=== PATIENT | male | born 1985 | race Hispanic/Latino ===

== ENCOUNTER 2017-06-06 18:01 | Inpatient (IN) | payer BC ==
[2017-06-06 18:01] VITALS: BMI 29.5
[2017-06-06] MEDS ORDERED: Sodium Chloride 0.9% 1,000 ML IV ONE ×2 (19:47→22:15)
--- NOTE | 2017-06-06 19:47 | C.PDOC ---
History Of Present Illness 31 year old male comes in to the ER complaining of abdominal pain. No fever, chills, nausea, or vomiting. Patient reports drinking around 1 quart of vodka daily. No homicidal or suicidal ideation. Does not want detox at this time. PMD: non-[facility] provider Time Seen by Provider: 06/06/17 19:46 Chief Complaint (Nursing): GI Problem History Per: Patient History/Exam Limitations: no limitations Onset/Duration Of Symptoms: Hrs Current Symptoms Are (Timing): Still Present Severity: Moderate Pain Scale Rating Of: 4 Location Of Pain/Discomfort: Diffuse Radiation Of Pain To:: None Quality Of Discomfort: "Pain" Associated Symptoms: denies: Fever, Chills, Nausea, Vomiting Exacerbating Factors: None Alleviating Factors: None Recent travel outside of the [place]: No Past Medical History Reviewed: Historical Data, Nursing Documentation, Vital Signs Vital Signs: Last Vital Signs Temp 98.6 F 06/07/17 05:51 Pulse 93 H 06/07/17 05:51 Resp 18 06/07/17 05:51 BP 136/90 06/07/17 05:51 Pulse Ox 95 06/07/17 05:51 - Medical History PMH: Post Traumatic Stress Disorder Surgical History: No Surg Hx - [facility] Procedures DETOXIFICATION SERVICES FOR SUBSTANCE ABUSE TREATMENT (04/11/16) GROUP SWITCH CREW SUPERVISOR FOR SUBSTANCE ABUSE TREATMENT, PSYCHOEDUCATION (04/11/16) Family History: States: No Known Family Hx - Social History Hx Tobacco Use: No Hx Alcohol Use: Yes (daily) Hx Substance Use: No - Immunization History Hx Tetanus Toxoid Vaccination: No Hx Influenza Vaccination: No Hx Pneumococcal Vaccination: No Review Of Systems Constitutional: Negative for: Fever, Chills Gastrointestinal: Positive for: Abdominal Pain. Negative for: Nausea, Vomiting Psych: Negative for: Suicidal ideation (or homicidal) Physical Exam - Physical Exam Appears: Non-toxic, No Acute Distress Skin: Warm, Dry Head: Normacephalic Eye(s): bilateral: Normal Inspection Oral Mucosa: Moist Neck: Trachea Midline, Supple Chest: Symmetrical Cardiovascular: Rhythm Regular Respiratory: No Rales, No Rhonchi, No Wheezing Gastrointestinal/Abdominal: Soft, Tenderness (Mild mid-epigastric tenderness), No Guarding, No Rebound Back: Normal Inspection Extremity: Normal ROM Extremity: Bilateral: Atraumatic Pulses: Left Dorsalis Pedis: Normal, Right Dorsalis Pedis: Normal Neurological/Psych: Oriented x3, Other (Cooperative, pleasant) Gait: Steady ED Course And Treatment - Laboratory Results Result Diagrams: 06/06/17 20:19 06/06/17 20:19 O2 Sat by Pulse Oximetry: 95 (RA) Pulse Ox Interpretation: Normal Progress Note: Ordered blood work, UDS, and UA. Patient given 0.5 mg Ativan, 20 mg Pepcid, and started on IV fluids. Disposition Counseled Patient/Family Regarding: Studies Performed, Diagnosis, Need For Followup - Disposition Disposition Time: 19:47 Condition: FAIR Forms: [email or web address] (Lebanese) - Clinical Impression Clinical Impression: Alcohol abuse, Abdominal pain, Depression - Scribe Statement The provider has reviewed the documentation as recorded by the Scribe (Meghan Angulo) Provider Attestation: All medical record entries made by the Scribe were at my direction and personally dictated by me. I have reviewed the chart and agree that the record accurately reflects my personal performance of the history, physical exam, medical decision making, and the department course for this patient. I have also personally directed, reviewed, and agree with the discharge instructions and disposition. Physician Patient Turnover Patient Signed Over To: Rush Quiñonez Handoff Comments: pending transfer to [facility] unit
[2017-06-06 20:26] LABS: SQUAMOUS EPITHIAL < 1 /hpf (0-5); URINE BACTERIA OCC (<OCC); URINE BILIRUBIN 1+ (NEGATIVE); URINE BLOOD NEGATIVE (NEGATIVE); URINE CLARITY Hazy (Clear); URINE COLOR Amber (YELLOW); URINE GLUCOSE (UA) 1+ mg/dL (Normal); URINE LEUKOCYTE ESTERASE NEG Leu/uL (Negative); URINE NITRATE NEGATIVE (NEGATIVE); URINE PROTEIN 3+ mg/dL (NEGATIVE)
[2017-06-06] MEDS ORDERED: Sodium Chloride 0.9% 1,000 ML ONE (20:31)
[2017-06-06 20:38] LABS: ALB/GLOB RATIO 1.1 (1.0-2.1); ALBUMIN 4.7 g/dL (3.5-5.0); ALT/SGPT 187 U/L (21-72); AST/SGOT 268 U/L (17-59); BLOOD UREA NITROGEN 8 mg/dL (9-20); CALCIUM 9.3 mg/dl (8.6-10.4); GFR AFRICAN-AMERICAN > 60; GFR NON-AFRICAN AMERICAN > 60; LIPASE 377 U/L (23-300)
[2017-06-06 20:47] LABS: BARBITURATES, UR NEGATIVE (NEGATIVE); OPIATES, UR NEGATIVE (NEGATIVE); PHENCYCLIDINE, UR NEGATIVE (NEGATIVE)
[2017-06-06 20:49] LABS: BENZODIAZEPINES, UR POSITIVE (NEGATIVE)
[2017-06-06 20:59] LABS: BASO % 0.3 % (0.0-2.0); EOS % 0.1 % (0.0-4.0); LYMPH % 11.1 % (20.0-40.0)
[2017-06-06 21:16] LABS: HEMOGLOBIN 17.4 g/dL (12.0-18.0); LYMPH # 0.9 K/uL (1.0-4.3); MEAN CELL VOLUME 98.4 fL (80.0-94.0); MEAN CORPUSCULAR HEMOGLOBIN 34.6 pg (27.0-31.0); MEAN CORPUSCULAR HGB CONC 35.2 g/dL (33.0-37.0); MEAN PLATELET VOLUME 8.6 fL (7.2-11.7); MONO # 0.7 K/uL (0.0-0.8); MONO % 9.1 % (0.0-10.0); NEUT # 6.4 K/uL (1.8-7.0); NEUT % 79.4 % (50.0-75.0); NRBC % 0.1 % (0.0-2.0); RBC 5.04 Mil/uL (4.40-5.90); RED CELL DISTRIBUTION WIDTH 13.9 % (11.5-14.5); WHITE BLOOD COUNT 8.1 K/uL (4.8-10.8)
[2017-06-06] MEDS ORDERED: Iodixanol 320 MG/ML 100 ML BOTTLE IV ONE (21:38)
--- NOTE | 2017-06-06 22:27 | CT ---
EXAM: CT Abdomen and Pelvis With Intravenous Contrast EXAM DATE/TIME: 06/06/2017 8:41 PM CLINICAL HISTORY: 31 years old, male; Pain; Abdominal pain; Generalized; Additional info: Abd pain, elevated, lipase, ETOH abuse TECHNIQUE: Axial computed tomography images of the abdomen and pelvis with intravenous contrast. All CT scans at this facility use one or more dose reduction techniques, viz.: automated exposure control; ma/kV adjustment per patient size (including targeted exams where dose is matched to indication; i.e. head); or iterative reconstruction technique. Coronal and sagittal reformatted images were created and reviewed. CONTRAST: 100 mL of visipaque 320 administered intravenously. COMPARISON: No relevant prior studies available. FINDINGS: The liver is decreased in attenuation consistent with fatty infiltration. Splenic calcifications are present. The pancreas is normal. No evidence of pancreatitis. No gallstones. There is minimal bilateral symmetric perinephric stranding. Indistinctness of the anterior urinary bladder wall due to patient motion. The small bowel appears normal. The right colon is decompressed. A normal appendix is identified coronal images 53 through 55. No aortic aneurysm or dissection. IMPRESSION: No acute findings. Fatty liver.
[2017-06-07] MEDS: Multiple Vitamins Tab PO SCH (10:45)
--- NOTE | 2017-06-07 11:07 | PCM.BM ---
<Stacie Woods - Last Filed: 06/07/17 11:05> Treatment Plan Problems - Problems identified on initial assessmt Potential for alcohol withdrawals Date Initiated: 06/07/17 Assessment reference: NA Status: Active Treatment assets and liabiliti Patient Assests: adapts well, cooperative, educated, motivated, ADL independent , negotiates basic needs Patient Liabilities: substance abuse - Milieu Protocol Maintain good personal hygiene: daily Encourage regular showers, daily Remind patient to perform daily oral care, daily Assist patient to perform ADL's Maintain personal safety: every shift Educate patient to report safety concerns to staff, every shift Monitor environment for contraband/sharps Medication safety: Monitor for expected outcome, potential side effects: every shift, Assess barriers to learning: every shift, Assess readiness for medication education: every shift <Placido Lloyd - Last Filed: 06/07/17 14:13> - Diagnosis (1) Alcohol use disorder Status: Acute Interventions: 06/07/17 14:13 * Assess 7x/week regarding severity of withdrawal * Educate regarding risks, benefits, side effects and alternatives of medications * Use Motivational Interviewing for abstinence * Use CBT for relapse prevention * Medication management for withdrawal symptoms * Encourage medication assisted treatment *
[2017-06-07 12:12] LABS: MAGNESIUM 1.3 mg/dL (1.6-2.3)
[2017-06-07] MEDS: Pantoprazole 20 mg EC Tab PO SCH (13:26)
[2017-06-07] MEDS: Potassium Chloride 20 mEq ER Tab PO SCH (13:26)
--- NOTE | 2017-06-07 14:24 | PCM.PSYCH ---
Initial Psychiatric Evaluation - Initial Psychiatric Evaluation Type of Admission: Voluntary Legal Status: Capacity Chief Complaint (in patient's own words): "Alcohol" History of Present Illness and Precipitating Events: The patient is seen, chart reviewed and case discussed. This is a 31-year-old male, with no children, lives with 2 roommates, works for [employer]. He admits to drinking a pint of whiskey and he used to drink more than that, "a handle" (1.7 L) He says he increased last February but he has a history of several years already. First time was in his teens. He currently has significant wdw sxs with his BP shot up to 120 diastolic! He is shaky, sweaty and despite meds given in ED. No hx of DTs or seizures but he says he could not stop outside. He denies drugs and cigarettes smoking. This is his first detox but he was here for a psychiatric admission from where he went to medical floor. He reports anxiety, flashbacks and nightmares from an incident during [place] war in [id number]. He says he used zoloft with not much success. Past psych hx: One brief admission here. no beba attempt. Family psych history: Denies Medical history: Denies Current Medications: Active Medications Generic Name Dose Route Start Last Admin Trade Name Freq PRN Reason Stop Dose Admin Clonidine HCl 0.1 mg 06/07/17 12:16 Catapres PO Q4H PRN BP>150/100 or P>100 Folic Acid 1 mg 06/07/17 10:15 06/07/17 10:45 Folic Acid PO Not Given DAILY GARRET Gabapentin 400 mg 06/07/17 14:00 06/07/17 13:25 Neurontin PO 400 mg TID GARRET Administration Hydroxyzine HCl 50 mg 06/07/17 10:17 Atarax PO Q6H PRN Anxiety Ibuprofen 600 mg 06/07/17 10:17 06/07/17 10:54 Motrin Tab PO 600 mg Q6H PRN Administration Pain, moderate (4-7) Lorazepam 2 mg 06/07/17 10:30 06/07/17 10:33 Ativan PO 06/12/17 10:29 2 mg Q6H GARRET Administration Taper Lorazepam 1 mg 06/07/17 10:16 Ativan PO Q4H PRN Symptoms of alcohol withdrawl Magnesium Oxide 400 mg 06/07/17 18:00 Mag-Ox PO BID GARRET Multivitamins 1 tab 06/07/17 10:15 06/07/17 10:45 Hexavitamin PO Not Given DAILY GARRET Pantoprazole Sodium 20 mg 06/07/17 12:15 06/07/17 13:26 Protonix Ec Tab PO 20 mg DAILY GARRET Administration Potassium Chloride 20 meq 06/07/17 12:30 06/07/17 13:26 K-Dur 20 Meq Er Tab PO 06/08/17 10:01 20 meq DAILY GARRET Administration Thiamine HCl 100 mg 06/07/17 10:15 06/07/17 10:45 Vitamin B1 Tab PO Not Given DAILY GARRET Trazodone HCl 100 mg 06/07/17 10:13 Desyrel PO HS PRN Insomnia Past Psychiatric History - Past Psychiatric History Previous Treatment History: Inpatient Pertinent Medical Hx (Current Medical&Sleep Prob, Allergies): Allergies Allergy/AdvReac Type Severity Reaction Status Date / Time No Known Allergies Allergy Verified 06/06/17 18:41 Sertraline HCl 1 tab PO DAILY 06/06/17 Trazodone HCl 50 mg PO HS PRN 06/06/17 Review of Systems - Psychiatric Psychiatric: Abnormal Sleep Pattern, Anxiety. absent: Hallucinations, Homicidal Ideation, Paranoia, Suicidal Ideation Mental Status Examination - Personal Presentation Personal Presentation: Looks stated age - Affect Affect: Constricted - Motor Activity Motor Activity: Calm - Reliability in Providing Information Reliability in Providing Information: Good - Speech Speech: Organized - Mood Mood: Anxious - Formal Thought Process Formal Thought Process: No Impairment - Cognitive Functions Orientation: Person, Place, Situation, Time Sensorium: Alert Attention/Concentration: Attentive Estimate of Intelligence: Average Judgement: Intact, as evidence by: Insight regarding need for hospitalization Memory: Recent intact, as evidence by: Ability to recall events of the day, Remote intact, as evidenced by: Ability to recall historical events - Risk Risk: Seizure, Withdrawal, Diminished functioning - Strength & Assets Inventory Strength & Assets Inventory: Cooperative - Limitations Limitations: Living alone, Other DSM 5 DX - DSM 5 DSM 5 Diagnosis: Alcohol withdrawal Alcohol use d/o- severe PTSD - Recommended/Plan of Treatment Treatment Recommendations and Plan of Treatment: Start taper with Ativan due to elevated LFTs Gabapentin for augmentation As needed medications Mg supplement Protonix bc of pancrease/GI irritability All risks, benefits and alternatives of the meds discussed, and the pt agreed and understood. Attend groups and activities Supportive therapy and psychoeducation [place] for abstinence CBT for relapse prevention Encourage MAT Refer to rehab or IOP, and self-help groups 34 min Projected ELOS: 5-6 days Prognosis: Fair to good Discharge Plan and Discharge Criteria: Refer to IOP as he says he cannot go to rehab due to work
[2017-06-07] MEDS: Magnesium Oxide 400 mg Tab UD PO SCH (17:45)
[2017-06-08] MEDS: Pantoprazole 20 mg EC Tab PO SCH (10:23)
[2017-06-08] MEDS: Multiple Vitamins Tab PO SCH (10:23)
[2017-06-08] MEDS: Potassium Chloride 20 mEq ER Tab PO SCH (10:24)
[2017-06-08] MEDS: Magnesium Oxide 400 mg Tab UD PO SCH ×2 (10:44→20:47)
--- NOTE | 2017-06-08 13:48 | PCM.PYCHPN ---
Psychiatric Progress Note - Psychiatric Progress Note Patient seen today, length of contact: 16 min Patient Chief Complaint: "Better, a little" Problems Identified/Issues Discussed: The pt is seen, chart reviewed, case discussed with staff. The pt is compliant with medications and reports no side-effects. Symptoms are improving but needs more time to stabilize. After care discussed, support and psychoeducation given. Medication Change: Yes Medical Record Reviewed: Yes Mental Status Examination - Cognitive Function Orientation: Person, Place, Situation, Time Memory: Intact Attention: WNL Concentration: Poor Association: WNL Fund of Knowledge: WNL - Mood Mood: Anxious - Affect Affect: Constricted - Formal Thought Process Formal Thought Process: No Impairment - Suicidal Ideation Suicidal Ideation: No - Homicidal Ideation Homicidal Ideation: No Goal/Treatment Plan - Goal/Treatment Plan Need for Continued Stay: Discharge may exacerbated symptoms, Severe functional impairment Progress Toward Problem(s) and Goals/Treatment Plan: Ativan taper due to elevated LFTs Gabapentin for augmentation As needed medications Mg supplement Protonix bc of pancrease/GI irritability All risks, benefits and alternatives of the meds discussed, and the pt agreed and understood. Attend groups and activities Supportive therapy and psychoeducation [place] for abstinence CBT for relapse prevention Encourage MAT Refer to rehab or IOP, and self-help groups
[2017-06-09] MEDS: Magnesium Oxide 400 mg Tab UD PO SCH ×2 (09:14→17:35)
[2017-06-09] MEDS: Pantoprazole 20 mg EC Tab PO SCH (09:14)
[2017-06-09] MEDS: Multiple Vitamins Tab PO SCH (09:14)
--- NOTE | 2017-06-09 16:28 | PCM.PYCHPN ---
Psychiatric Progress Note - Psychiatric Progress Note Patient seen today, length of contact: 15 minutes Patient Chief Complaint: I'm feeling better, my sleep is also better. Problems Identified/Issues Discussed: Patient seen, chart reviewed, case discussed with the staff. Issues related to illness and treatment were discussed with the patient and staff. Reported compliant with treatment with no adverse affects. Tolerating treatment very well. Reported very mild withdrawal symptoms, needs more time for stabilization. At the time of evaluation, patient was awake alert oriented 3, had no delusions , no auditory or visual hallucinations, no suicidal ideations or homicidal ideations. Aftercare discussed with the patient. Medical Problems: None reported Diagnostic Results: Reviewed DSM 5 Symptoms Update: Improving with treatment Medication Change: No Medical Record Reviewed: Yes Mental Status Examination - Cognitive Function Orientation: Person, Place, Situation, Time Memory: Intact Attention: WNL Concentration: WNL Association: WN Fund of Knowledge: [facility] Decription of patient's judgement and insights: Fair - Mood Mood: Anxious (Much less than before) - Affect Affect: Other (Appropriate) - Speech Speech: Appropriate - Formal Thought Process Formal Thought Process: No Impairment Psychotic Thoughts and Behaviors: None - Suicidal Ideation Suicidal Ideation: No - Homicidal Ideation Homicidal Ideation: No Goal/Treatment Plan - Goal/Treatment Plan Need for Continued Stay: Remain at risks for inpatient hospitalization, Discharge may exacerbated symptoms, Severe functional impairment Progress Toward Problem(s) and Goals/Treatment Plan: Improving with treatment Patient education Supportive therapy Continue treatment as before Patient did not decide aftercare yet, will decide with help of social work faculty member. Estimated Date of D/C: 06/12/17 - Smoking Cessation Smoking Cessation Initiated: No
[2017-06-10] MEDS: Pantoprazole 20 mg EC Tab PO SCH (09:40)
[2017-06-10] MEDS: Multiple Vitamins Tab PO SCH (09:40)
[2017-06-10] MEDS: Magnesium Oxide 400 mg Tab UD PO SCH ×2 (09:41→17:45)
--- NOTE | 2017-06-10 16:12 | PCM.PYCHPN ---
Psychiatric Progress Note - Psychiatric Progress Note Patient seen today, length of contact: 15 minutes Patient Chief Complaint: I'm feeling better, my sleep is also better. Problems Identified/Issues Discussed: Patient seen, chart reviewed, case discussed with the staff. Issues related to illness and treatment were discussed with the patient and staff. Reported compliant with treatment with no adverse affects. Tolerating treatment very well. Reported feeling better. At the time of evaluation, patient was awake alert oriented 3, had no delusions , no auditory or visual hallucinations, no suicidal ideations or homicidal ideations. Aftercare discussed with the patient. Medical Problems: None reported Diagnostic Results: Reviewed DSM 5 Symptoms Update: Improving with treatment Medication Change: No Medical Record Reviewed: Yes Mental Status Examination - Cognitive Function Orientation: Person, Place, Situation, Time Memory: Intact Attention: WNL Concentration: WNL Association: [facility] Fund of Knowledge: [facility] Decription of patient's judgement and insights: Fair - Mood Mood: Neutral - Affect Affect: Other (Appropriate) - Speech Speech: Appropriate - Formal Thought Process Formal Thought Process: No Impairment Psychotic Thoughts and Behaviors: None - Suicidal Ideation Suicidal Ideation: No - Homicidal Ideation Homicidal Ideation: No Goal/Treatment Plan - Goal/Treatment Plan Need for Continued Stay: Remain at risks for inpatient hospitalization, Discharge may exacerbated symptoms, Severe functional impairment Progress Toward Problem(s) and Goals/Treatment Plan: Improving with treatment Patient education Supportive therapy Continue treatment as before Patient did not decide aftercare yet, will decide with help of social media community manager. Estimated Date of D/C: 06/12/17 - Smoking Cessation Smoking Cessation Initiated: No
[2017-06-11 06:21] VITALS: O2SAT 99
[2017-06-11] MEDS: Magnesium Oxide 400 mg Tab UD PO SCH (09:25)
[2017-06-11] MEDS: Pantoprazole 20 mg EC Tab PO SCH (09:25)
[2017-06-11] MEDS: Multiple Vitamins Tab PO SCH (09:25)
--- NOTE | 2017-06-11 09:59 | PCM.PYCHDC ---
Mental Status Examination - Mental Status Examination Orientation: Person Discharge Summary - Discharge Note Consultations:: List each consultation separately and include: 1. Reason for request. 2. Findings. 3. Follow-up Summary of Hospital Course include:: 1. Description of specific treatment plan utilized for patients during their course of treatmen. 2. Summarize the time- course for resolution of acute symptoms and/or regressed behaviors. 3. Describe issues identified and worked on during hospitalization. 4. Describe medication utilized. 5. Describe medical problems identified and treated. 6. Reassessment of suicide risk Summary of Hospital Course: The patient is seen, chart reviewed and case discussed. This is a 31-year-old male, with no children, lives with 2 roommates, works for [employer]. He admits to drinking a pint of whiskey and he used to drink more than that, "a handle" (1.7 L) He says he increased last February but he has a history of several years already. First time was in his teens. He currently has significant wdw sxs with his BP shot up to 120 diastolic! He is shaky, sweaty and despite meds given in ED. No hx of DTs or seizures but he says he could not stop outside. He denies drugs and cigarettes smoking. This is his first detox but he was here for a psychiatric admission from where he went to medical floor. He reports anxiety, flashbacks and nightmares from an incident during [place] war in [id number]. He says he used zoloft with not much success. Past psych hx: One brief admission here. no beba attempt. Family psych history: Denies Medical history: Denies - Diagnosis (1) Alcohol use disorder Current Visit: Yes Status: Acute - Final Diagnosis (DSM 5) Condition upon Discharge: FAIR Disposition: HOME/ ROUTINE Follow-up Treatment Plan: Ativan taper due to elevated LFTs Gabapentin for augmentation As needed medications Mg supplement Protonix bc of pancrease/GI irritability All risks, benefits and alternatives of the meds discussed, and the pt agreed and understood. Attend groups and activities Supportive therapy and psychoeducation [place] for abstinence CBT for relapse prevention Encourage MAT Refer to rehab or IOP, and self-help groups Prescriptions/Medication Reconciliation: Gabapentin [Neurontin] 400 mg PO TID #90 cap Magnesium Oxide [Mag-Ox] 400 mg PO DAILY #14 tab Multivitamins [Hexavitamin] 1 tab PO DAILY #30 tab Pantoprazole [Protonix EC Tab] 20 mg PO DAILY #30 ect traZODone [Desyrel] 100 mg PO HS PRN #30 tab PRN Reason: Insomnia
[2017-06-11 10:52] VITALS: RESP 18
[2017-06-11 10:59] VITALS: BP 132/86; PULSE 87; TEMP 97.8
== END 2017-06-11 11:00 | disposition home or self-care (01) | DRG 895 ==
LOC: C.ER 18:01 → C.7D 06-07 08:34
PROVIDERS: ADMIT Psychiatry & Neurology Psychiatry; ATTEND Psychiatry & Neurology Psychiatry
PROC: HZ2ZZZZ Detoxification Services for Substance Abuse Treatment (ICD-10-PCS; principal; 2017-06-07)
PROC: HZ52ZZZ Individual Psychotherapy for Substance Abuse Treatment, Cognitive-Behavioral (ICD-10-PCS; 2017-06-07)
PROC: HZ42ZZZ Group Counseling for Substance Abuse Treatment, Cognitive-Behavioral (ICD-10-PCS; 2017-06-07)
PROC: HZ59ZZZ Individual Psychotherapy for Substance Abuse Treatment, Supportive (ICD-10-PCS; 2017-06-07)
PROC: HZ56ZZZ Individual Psychotherapy for Substance Abuse Treatment, Psychoeducation (ICD-10-PCS; 2017-06-07)
PROC: HZ46ZZZ Group Counseling for Substance Abuse Treatment, Psychoeducation (ICD-10-PCS; 2017-06-07)
DX: F10.230 Alcohol dependence with withdrawal, uncomplicated (principal); F43.10 Post-traumatic stress disorder, unspecified; G47.00 Insomnia, unspecified; Y90.8 Blood alcohol level of 240 mg/100 ml or more; R79.89 Other specified abnormal findings of blood chemistry

== ENCOUNTER 2017-07-08 11:12 | Inpatient (IN) | payer BC ==
[2017-07-08 11:12] VITALS: BMI 29.5
[2017-07-08 12:59] LABS: BASO # 0.1 K/uL (0.0-0.2); BASO % 0.7 % (0.0-2.0); HEMOGLOBIN 17.3 g/dL (12.0-18.0); LYMPH # 0.8 K/uL (1.0-4.3); LYMPH % 7.7 % (20.0-40.0); MEAN CELL VOLUME 98.8 fL (80.0-94.0); MEAN CORPUSCULAR HEMOGLOBIN 34.9 pg (27.0-31.0); MEAN CORPUSCULAR HGB CONC 35.4 g/dL (33.0-37.0); MEAN PLATELET VOLUME 7.8 fL (7.2-11.7); MONO # 0.7 K/uL (0.0-0.8); MONO % 6.7 % (0.0-10.0); NEUT # 8.5 K/uL (1.8-7.0); NEUT % 84.9 % (50.0-75.0); NRBC % 0.2 % (0.0-2.0); PLATELET COUNT 137 K/uL (130-400); RBC 4.95 Mil/uL (4.40-5.90); RED CELL DISTRIBUTION WIDTH 13.4 % (11.5-14.5)
--- NOTE | 2017-07-08 13:06 | C.PDOC ---
History Of Present Illness 31 year old male presents to the emergency department requesting an alcohol detox. Patient reports he was discharged a month ago from the hospital a month ago, and only remained sober for one day. Since then, he has started drinking " 1 pint of Rhys Mosher" per day. His last drink was last night. Patient also reports that he ran out of medication recently. Time Seen by Provider: 07/08/17 12:23 Chief Complaint (Nursing): Substance Abuse History Per: Patient History/Exam Limitations: no limitations Onset/Duration Of Symptoms: Days (1) Modifying Factor(s): Alcohol Past Medical History Reviewed: Historical Data, Nursing Documentation, Vital Signs Vital Signs: Last Vital Signs Temp 98.5 F 07/08/17 13:44 Pulse 101 H 07/08/17 17:52 Resp 20 07/08/17 17:52 BP 149/85 07/08/17 17:52 Pulse Ox 96 07/08/17 17:52 - Medical History PMH: Post Traumatic Stress Disorder Denies: Diabetes, Hepatitis, HIV, HTN, Seizures, Sexually Transmitted Disease Surgical History: No Surg Hx - [facility] Procedures DETOXIFICATION SERVICES FOR SUBSTANCE ABUSE TREATMENT (06/07/17) GROUP ROPE MAKER FOR SUBSTANCE ABUSE TREATMENT, PSYCHOEDUCATION (06/07/17) GROUP ROPE MAKER FOR SUBSTANCE ABUSE, COGNITIVE BEHAVIORAL (06/07/17) INDIV PSYCHOTHERAPY FOR SUBSTANCE ABUSE TREATMENT, SUPPORT (06/07/17) INDIV PSYCHOTHERAPY FOR SUBSTANCE ABUSE, COGNITIV BEHAVIORAL (06/07/17) INDIV PSYCHOTHERAPY FOR SUBSTANCE ABUSE, PSYCHOEDUCATION (06/07/17) Family History: States: No Known Family Hx - Social History Hx Tobacco Use: No Hx Alcohol Use: Yes (1 pint of Rhys Mosher per day) Hx Substance Use: No - Immunization History Hx Tetanus Toxoid Vaccination: No Hx Influenza Vaccination: No Hx Pneumococcal Vaccination: No Review Of Systems Except As Marked, All Systems Reviewed And Found Negative. Neurological: Positive for: Other (intoxicated ) Physical Exam - Physical Exam Appears: Well (Tall, thin, white male), Other (intoxicated) Skin: Normal Color Head: Atraumatic, Normacephalic Eye(s): bilateral: Normal Inspection Ear(s): Bilateral: Normal Nose: Normal Oral Mucosa: Other (smell of alcohol on breath) Tongue: Normal Appearing Throat: Normal Neck: Normal Cardiovascular: Rhythm Regular Respiratory: Normal Breath Sounds Gastrointestinal/Abdominal: Normal Exam Additional Physical Exam Comments: Patient is currently intoxicated. ED Course And Treatment - Laboratory Results Result Diagrams: 07/08/17 12:43 07/08/17 12:43 Lab Interpretation: Abnormal (etoh 306 H, tox neg.) O2 Sat by Pulse Oximetry: 94 (RA) Pulse Ox Interpretation: Abnormal Progress Note: 1300: librium 50 mg PO. 1600: zofran 4 mg ODT. 1730: librium 50 mg PO Reevaluation Time: 18:46 Reassessment Condition: Improved - Physician Consult Information Outcome Of Conversation: 1900: d/w Crisis, ok to admit. Medical Decision Making Medical Decision Making: Plan: * Alcohol Serum, CMP, Drug Screen * CBC * Librium 50mg PO * Urinalysis recurrent etoh abuse- Disposition Doctor Will See Patient In The: Office Counseled Patient/Family Regarding: Studies Performed, Diagnosis - Disposition Disposition: HOME/ ROUTINE Disposition Time: 18:46 Condition: GOOD Forms: [facility] (British) - Clinical Impression Clinical Impression: Alcohol abuse - Scribe Statement The provider has reviewed the documentation as recorded by the Scribe (Eliel Nixon) Provider Attestation: All medical record entries made by the Scribe were at my direction and personally dictated by me. I have reviewed the chart and agree that the record accurately reflects my personal performance of the history, physical exam, medical decision making, and the department course for this patient. I have also personally directed, reviewed, and agree with the discharge instructions and disposition.
[2017-07-08 13:12] LABS: ALB/GLOB RATIO 1.1 (1.0-2.1); ALT/SGPT 157 U/L (21-72); AST/SGOT 180 U/L (17-59); BLOOD UREA NITROGEN 9 mg/dL (9-20); CALCIUM 8.9 mg/dl (8.6-10.4); GFR AFRICAN-AMERICAN > 60; GFR NON-AFRICAN AMERICAN > 60
[2017-07-08 13:25] LABS: BARBITURATES, UR NEGATIVE (NEGATIVE); BENZODIAZEPINES, UR NEGATIVE (NEGATIVE); OPIATES, UR NEGATIVE (NEGATIVE); PHENCYCLIDINE, UR NEGATIVE (NEGATIVE); SQUAMOUS EPITHIAL 1 /hpf (0-5); URINE BACTERIA RARE (<OCC); URINE BILIRUBIN NEGATIVE (NEGATIVE); URINE BLOOD 1+ (NEGATIVE); URINE CLARITY Turbid (Clear); URINE COLOR Amber (YELLOW); URINE GLUCOSE (UA) 1+ mg/dL (Normal); URINE LEUKOCYTE ESTERASE NEG Leu/uL (Negative); URINE PROTEIN 3+ mg/dL (NEGATIVE)
[2017-07-08 13:30] LABS: LYMPHOCYTE 5 % (20-40); MONOCYTE 1 % (0-10); NEUTROPHIL 94 % (50-75); PLATELET ESTIMATE NORMAL (NORMAL); TOTAL CELLS COUNTED 100
--- NOTE | 2017-07-08 19:55 | PCM.BM ---
Treatment Plan Problems - Problems identified on initial assessmt Potential for alcohol withdrawal Date Initiated: 07/08/17 Time Initiated: 19:55 Assessment reference: NA Status: Active Treatment assets and liabiliti Patient Assests: cooperative, educated, motivated, ADL independent, negotiates basic needs, cognitively intact Patient Liabilities: substance abuse (ETOH) - Milieu Protocol Maintain good personal hygiene: daily Encourage regular showers, daily Remind patient to perform daily oral care, daily Assist patient to perform ADL's Conduct patient checks and document Observation sheet: Q15 minutes Maintain personal safety: every shift Educate patient to report safety concerns to staff, every shift Monitor environment for contraband/sharps Medication safety: Monitor for expected outcome, potential side effects: every shift, Assess barriers to learning: every shift, Assess readiness for medication education: every shift
[2017-07-09] MEDS: Multiple Vitamins Tab PO SCH (11:57)
--- NOTE | 2017-07-09 19:40 | PCM.PSYCH ---
Initial Psychiatric Evaluation - Initial Psychiatric Evaluation Type of Admission: Voluntary Legal Status: Capacity Chief Complaint (in patient's own words): I need treatment for my drinking and nightmares. History of Present Illness and Precipitating Events: Patient is a 31 years old, , employed, male with history of depression and nightmares, no treatment was admitted due to withdrawing from alcohol. Patient reported he started drinking alcohol in his teens. Increased gradually up to half pint daily. Last used yesterday. Patient has history of abstinence for about 3 weeks after which he relapsed about one week ago. Patient had one detox previously one month ago at [facility]. Patient reported drinking alcohol to cover up his depression and nightmares and flashback for an incidence that happen during [place] war in [id number]. Patient refused to discuss the incidents. Denied use of any other drugs including cocaine, cannabis and heroin. Denied smoking cigarettes. Patient was born in [place], currently working. He is and has no children. He lives with 2 other roommates. Current Medications: Active Medications Generic Name Dose Route Start Last Admin Trade Name Freq PRN Reason Stop Dose Admin Clonidine HCl 0.1 mg 07/08/17 20:33 07/09/17 04:37 Catapres PO 0.1 mg Q8 PRN Administration alcohol withdrawal Folic Acid 1 mg 07/09/17 11:30 07/09/17 11:57 Folic Acid PO 1 mg DAILY GARRET Administration Hydroxyzine HCl 25 mg 07/08/17 20:31 07/09/17 11:21 Atarax PO 25 mg Q8 PRN Administration Anxiety Lorazepam 2 mg 07/08/17 20:45 07/09/17 17:59 Ativan PO 07/13/17 20:44 2 mg Q4H GARRET Administration Taper Lorazepam 1 mg 07/08/17 20:32 Ativan PO Q4H PRN Symptoms of alcohol withdrawl Multivitamins 1 tab 07/09/17 11:15 07/09/17 11:57 Hexavitamin PO 1 tab DAILY GARRET Administration Ondansetron HCl 4 mg 07/08/17 20:30 07/09/17 04:35 Zofran Tab PO 4 mg Q8 PRN Administration Nausea/Vomiting Thiamine HCl 100 mg 07/09/17 11:15 07/09/17 11:57 Vitamin B1 Tab PO 100 mg DAILY GARRET Administration Trazodone HCl 50 mg 07/08/17 20:31 07/08/17 21:12 Desyrel PO 50 mg HS PRN Administration Insomnia Past Psychiatric History - Past Psychiatric History Previous Treatment History: Inpatient Prior Professional Help: One previous detox At [facility]: [facility] Date: 06/07/17 Duration: 5 days Nature of Treatment: Detox History of Abuse: None reported History of ETOH/Drug Use: See HPI History of Family Illness: None reported Pertinent Medical Hx (Current Medical&Sleep Prob, Allergies): Allergies Allergy/AdvReac Type Severity Reaction Status Date / Time No Known Allergies Allergy Verified 07/08/17 11:23 Sertraline HCl 1 tab PO DAILY 06/06/17 Gabapentin [Neurontin] 400 mg PO TID #90 cap 06/11/17 Magnesium Oxide [Mag-Ox] 400 mg PO DAILY #14 tab 06/11/17 Multivitamins [Hexavitamin] 1 tab PO DAILY #30 tab 06/11/17 Pantoprazole [Protonix EC Tab] 20 mg PO DAILY #30 ect 06/11/17 traZODone [Desyrel] 100 mg PO HS PRN #30 tab 06/11/17 Review of Systems - Psychiatric Psychiatric: Anxiety, Depression, Other Mental Status Examination - Personal Presentation Personal Presentation: Looks stated age - Affect Affect: Other (Appropriate) - Motor Activity Motor Activity: Calm - Reliability in Providing Information Reliability in Providing Information: Good - Speech Speech: Organized - Mood Mood: Depressed - Formal Thought Process Formal Thought Process: No Impairment - Hallucinations/Delusions Hallucinations: Other (None reported) Delusions: Other - Obsessions/Compulsions Obsessions: None Compulsions: None - Cognitive Functions Orientation: Person, Place, Situation, Time Sensorium: Alert Attention/Concentration: Attentive Abstract Thinking: [place] Estimate of Intelligence: Average Judgement: Intact, as evidence by: Insight regarding need for hospitalization Memory: Recent intact, as evidence by: Ability to recall events of the day, Remote intact, as evidenced by: Ability to recall historical events - Risk Risk: Withdrawal, Diminished functioning - Strength & Assets Inventory Strength & Assets Inventory: Employment status, Cooperative - Limitations Limitations: Other DSM 5 DX - DSM 5 DSM 5 Diagnosis: Alcohol use disorder severe Major depressive disorder recurrent severe PTSD chronic - Recommended/Plan of Treatment Treatment Recommendations and Plan of Treatment: Patient education Supportive therapy CBT for relapse prevention [place] for abstinence Will start Librium detox protocol for alcohol withdrawal symptoms Other when necessary medications We will start Paxil for depression We will start prazosin for PTSD Projected ELOS: 4-5 days - Smoking Cessation Smoking Cessation Initiated: No Reason for not providing: Patient doesn't smoke cigarette
[2017-07-10] MEDS: Multiple Vitamins Tab PO SCH (09:39)
--- NOTE | 2017-07-10 18:55 | PCM.PYCHPN ---
Psychiatric Progress Note - Psychiatric Progress Note Patient seen today, length of contact: 15 minutes Patient Chief Complaint: I'm feeling little better. Problems Identified/Issues Discussed: Patient seen, chart reviewed, case discussed with the staff. Issues related to illness and treatment were discussed with the patient. Reported compliant with treatment with no adverse affects. Tolerating treatment very well. Reported feeling better, still has withdrawal symptoms. Mood reported as anxious. Affect appropriate. Encouraged time of evaluation, patient was awake alert oriented 3, had no delusions, no auditory or visual hallucinations, no suicidal ideations or homicidal ideations. Medical Problems: None reported Diagnostic Results: Reviewed DSM 5 Symptoms Update: Improving with treatment Medication Change: No Medical Record Reviewed: Yes Mental Status Examination - Cognitive Function Orientation: Person, Place, Situation, Time Memory: Intact Attention: WNL Concentration: WNL Association: [facility] Fund of Knowledge: [facility] Decription of patient's judgement and insights: Fair - Mood Mood: Anxious - Affect Affect: Other (Appropriate) - Speech Speech: Appropriate - Formal Thought Process Formal Thought Process: No Impairment Psychotic Thoughts and Behaviors: None - Suicidal Ideation Suicidal Ideation: No - Homicidal Ideation Homicidal Ideation: No Goal/Treatment Plan - Goal/Treatment Plan Need for Continued Stay: Remain at risks for inpatient hospitalization, Discharge may exacerbated symptoms, Severe functional impairment Progress Toward Problem(s) and Goals/Treatment Plan: Patient education Supportive therapy CBT for relapse prevention [place] for abstinence Continue treatment as before. Estimated Date of D/C: 07/13/17 - Smoking Cessation Smoking Cessation Initiated: No Reason for not providing: Patient doesn't smoke cigarettes
[2017-07-11] MEDS: Multiple Vitamins Tab PO SCH (09:26)
[2017-07-12] MEDS: Multiple Vitamins Tab PO SCH (10:02)
--- NOTE | 2017-07-12 17:10 | PCM.BM ---
Treatment Plan Problems - Problems identified on initial assessmt Potential for alcohol withdrawal Date Initiated: 07/08/17 Time Initiated: 19:55 Assessment reference: NA Status: Active Treatment assets and liabiliti Patient Assests: cooperative, educated, motivated, ADL independent, negotiates basic needs, cognitively intact Patient Liabilities: substance abuse (ETOH) - Milieu Protocol Maintain good personal hygiene: daily Encourage regular showers, daily Remind patient to perform daily oral care, daily Assist patient to perform ADL's Conduct patient checks and document Observation sheet: Q15 minutes Maintain personal safety: every shift Educate patient to report safety concerns to staff, every shift Monitor environment for contraband/sharps Medication safety: Monitor for expected outcome, potential side effects: every shift, Assess barriers to learning: every shift, Assess readiness for medication education: every shift Milieu Narrative: Patient education Supportive therapy CBT for relapse prevention [place] for abstinence Continue treatment as before. Discharge/Continuing Care - Treatment Team Participation Patient/Family/SO Statement: Patient education Supportive therapy CBT for relapse prevention [place] for abstinence Continue treatment as before.
[2017-07-12 21:00] VITALS: RESP 18
--- NOTE | 2017-07-12 23:27 | PCM.PYCHPN ---
Psychiatric Progress Note - Psychiatric Progress Note Patient seen today, length of contact: 15 minutes Patient Chief Complaint: I'm feeling little better. Problems Identified/Issues Discussed: Patient seen, chart reviewed, case discussed with the staff. Issues related to illness and treatment were discussed with the patient. Reported compliant with treatment with no adverse affects. Tolerating treatment very well. Reported feeling better, still has withdrawal symptoms. Mood reported as anxious. Affect appropriate. Encouraged time of evaluation, patient was awake alert oriented 3, had no delusions, no auditory or visual hallucinations, no suicidal ideations or homicidal ideations. Medical Problems: None reported Diagnostic Results: Reviewed Medication Change: No Medical Record Reviewed: Yes Mental Status Examination - Cognitive Function Orientation: Person, Place, Situation, Time Memory: Intact Attention: WNL Concentration: WNL Association: [facility]NL Fund of Knowledge: [facility] Decription of patient's judgement and insights: Fair - Mood Mood: Anxious - Affect Affect: Other (Appropriate) - Speech Speech: Appropriate - Formal Thought Process Formal Thought Process: No Impairment Psychotic Thoughts and Behaviors: None - Suicidal Ideation Suicidal Ideation: No - Homicidal Ideation Homicidal Ideation: No Goal/Treatment Plan - Goal/Treatment Plan Need for Continued Stay: Remain at risks for inpatient hospitalization, Discharge may exacerbated symptoms, Severe functional impairment Progress Toward Problem(s) and Goals/Treatment Plan: Patient education Supportive therapy CBT for relapse prevention [place] for abstinence Continue treatment as before. Estimated Date of D/C: 07/13/17
[2017-07-13 06:27] VITALS: BP 135/93; PULSE 88; TEMP 97.9; O2SAT 88
--- NOTE | 2017-07-14 17:46 | PCM.PYCHDC ---
Mental Status Examination - Mental Status Examination Orientation: Person, Place, Situation, Time Memory: Intact Mood: Neutral Affect: Other (Appropriate) Speech: Appropriate Attention: WNL Concentration: WNL Association: WNL Fund of Knowledge: WNL Formal Thought Process: No Impairment Description of patient's judgement and insight: Fair Psychotic Thoughts and Behaviors: None Suicidal Ideation: No Current Homicidal Ideation?: No Discharge Summary - Discharge Note Reason for Hospitalization: Alcohol use disorder severe Major depressive disorder recurrent severe PTSD chronic Psychiatric History (includes Medical, Family, Personal Hx): Detox Laboratory Data: Reviewed Consultations:: List each consultation separately and include: 1. Reason for request. 2. Findings. 3. Follow-up Summary of Hospital Course include:: 1. Description of specific treatment plan utilized for patients during their course of treatmen. 2. Summarize the time- course for resolution of acute symptoms and/or regressed behaviors. 3. Describe issues identified and worked on during hospitalization. 4. Describe medication utilized. 5. Describe medical problems identified and treated. 6. Reassessment of suicide risk Summary of Hospital Course: Patient is a 31 years old, , employed, male with history of depression and nightmares, no treatment was admitted due to withdrawing from alcohol. Patient reported he started drinking alcohol in his teens. Increased gradually up to half pint daily. Last used yesterday. Patient has history of abstinence for about 3 weeks after which he relapsed about one week ago. Patient had one detox previously one month ago at [facility]. Patient reported drinking alcohol to cover up his depression and nightmares and flashback for an incidence that happen during [place] war in [id number]. Patient refused to discuss the incidents. Denied use of any other drugs including cocaine, cannabis and heroin. Denied smoking cigarettes. Patient was born in [place], currently working. He is and has no children. He lives with 2 other roommates. During his stay in the hospital patient was treated with Librium detox protocol. He was also started on other. Medications. Patient was attending groups and other activities on the unit. With the above treatment patient started feeling better. Today patient was treated for discharge. At the time of evaluation and discharge, patient was awake alert oriented 3, had no delusions, no auditory or visual hallucinations, no suicidal ideations or homicidal ideations. Patient was discharged in a stable condition. - Final Diagnosis (DSM 5) Condition upon Discharge: GOOD Disposition: HOME/ ROUTINE - Smoking Cessation Smoking Cessation Medication prescribed: No - Antipsychotic Medications Pt discharged on 2 or more routine antipsychotic medications: No
== END 2017-07-13 07:55 | disposition home or self-care (01) | DRG 895 ==
LOC: C.ER 11:12 → C.7D 18:47
PROC: HZ2ZZZZ Detoxification Services for Substance Abuse Treatment (ICD-10-PCS; principal; 2017-07-08)
PROC: HZ52ZZZ Individual Psychotherapy for Substance Abuse Treatment, Cognitive-Behavioral (ICD-10-PCS; 2017-07-08)
PROC: HZ59ZZZ Individual Psychotherapy for Substance Abuse Treatment, Supportive (ICD-10-PCS; 2017-07-08)
DX: F10.230 Alcohol dependence with withdrawal, uncomplicated (principal); F33.2 Major depressive disorder, recurrent severe without psychotic features; Y90.8 Blood alcohol level of 240 mg/100 ml or more; F43.12 Post-traumatic stress disorder, chronic